=== PATIENT | male | born 1985 | race Caucasian/White ===

== ENCOUNTER 2022-03-25 09:57 | Emergency (ER) | payer BC, SELFPAY ==
--- NOTE | 2022-03-25 10:00 | ECG_ITS ---
Measurements Intervals [place] Rate: 94 P: 68 OR: 143 QRS: -19 QRSD: 97 T: 52 QT: 361 QTc: 451 Interpretive Statements SINUS RHYTHM POSSIBLE LEFT ATRIAL ENLARGEMENT POOR R WAVE PROGRESSION, ANTERIOR LEADS BORDERLINE ECG Electronically Signed On 03-25-2022 10:11:51 CDT by Chai Daley D.O.
[2022-03-25 10:01] VITALS: BP 138/100; PULSE 88; RESP 18; TEMP 36.8; O2SAT 97
--- NOTE | 2022-03-25 10:18 | ED.ARRPALP ---
HPI - Arrhythmia/Palpitations General Chief Complaint: Arrhythmia/Palpitations Stated Complaint: heart palpitations - near syncope Time Seen by Provider: 03/25/22 10:16 Source: patient Limitations: no limitations History of Present Illness HPI narrative: 36 years old white male was in a meeting at [employer] which is the busiest day of the season, while sitting in the meeting started feeling hot flashes going from his lower extremity all the way up to his head, and waves, feeling like he is going to blackout, the above symptoms was intermittent last few seconds each time then resolve spontaneously. On arrival to the emergency room patient's symptoms are resolved, he denies any fever, chills, nausea, vomiting, chest pain or shortness of breath. Patient is healthy otherwise, does not take medicine at home, he smokes and drinks, denies drug use. Related Data Home Medications Medication Instructions Recorded Confirmed No Home Medications 03/25/22 03/25/22 Allergies Allergy/AdvReac Type Severity Reaction Status Date / Time No Known Allergies Allergy Verified 03/25/22 11:57 Review of Systems Review of Systems: All systems reviewed & are unremarkable except as noted in HPI and below Exam Narrative: General appearance: Well-developed, well-nourished, anxious, restless Skin: Normal color Head: Normocephalic, nontraumatic Eyes: Clear conjunctiva ENT: Oropharynx normal, ears normal, nose normal Neck: Supple, nontender Chest and respiratory: Airway patent, no respiratory distress, no accessory muscle use Heart: Regular rate/rhythm Abdomen: Soft, nontender, no organomegaly, quiet bowel sounds Vascular: Normal peripheral pulses, normal capillary refill. Musculoskeletal: Normal range of motion, nontender back Neurologic: Alert and oriented ?3, [employer] is normal as tested, no gross motor deficit Course Reevaluation(s) Reevaluation #1: Patient feeling much better, declined to take the Ativan, and would like to go home. Also declined to take any day of work and would like to go to work immediately. Vital Signs Vital signs: Vital Signs Temperature 36.8 C 03/25/22 10:01 Pulse Rate 88 03/25/22 10:01 Respiratory Rate 18 03/25/22 10:01 Blood Pressure 138/100 H 03/25/22 10:01 Pulse Oximetry 97 03/25/22 10:01 Oxygen Delivery Room Air 03/25/22 10:01 Temperature 36.8 C 03/25/22 10:01 Pulse Rate 110 H 03/25/22 11:52 Respiratory Rate 18 03/25/22 11:52 Blood Pressure 139/99 H 03/25/22 11:52 Pulse Oximetry 97 03/25/22 10:01 Oxygen Delivery Room Air 03/25/22 11:52 MDM - Arrhythmia/Palpitations Differential Diagnosis Differential diagnosis: Likely palpitations and anxiety Lab Data Result diagrams: 03/25/22 10:39 03/25/22 10:39 Labs: Lab Results 03/25/22 03/25/22 03/25/22 Range/Units 10:39 10:39 10:39 WBC 12.7 H (4.5-10.0) K/mm3 RBC 4.85 (4.6-6.20) M/mm3 Hgb 16.3 (14.0-18.0) g/dL Hct 48.1 (42.0-52.0) % MCV 99.2 (80-100) fl MCH 33.6 (26-34) pg MCHC 33.9 (32-36) g/dl RDW 12.8 (11.5-14.5) % Plt Count 269 (150-375) k/mm3 MPV 9.6 (7.4-10.4) fl Immature Gran % (Auto) Not Reportable Neut % (Auto) Not Reportable Lymph % (Auto) Not Reportable [place] % (Auto) Not Reportable Eos % (Auto) Not Reportable Baso % (Auto) Not Reportable Lymph # (Auto) Not Reportable [place] # (Auto) Not Reportable Eos # (Auto) Not Reportable Baso # (Auto) Not Reportable Abs Immat Gran (auto) Not Reportable Absolute Neuts (auto) Not Reportable Absolute Nucleated RBC Not Reportable Nucleate
[2022-03-25 10:50] LABS: Hematocrit 48.1 % (42.0-52.0); Hemoglobin 16.3 g/dL (14.0-18.0); Mean Corpuscular HGB Conc 33.9 g/dl (32-36); Mean Corpuscular Hemoglobin 33.6 pg (26-34); Mean Corpuscular Volume 99.2 fl (80-100); Mean Platelet Volume 9.6 fl (7.4-10.4); Platelet Count Result 269 k/mm3 (150-375); Red Blood Count 4.85 M/mm3 (4.6-6.20); Red Cell Distribution Width 12.8 % (11.5-14.5); White Blood Count 12.7 K/mm3 (4.5-10.0)
[2022-03-25 10:59] LABS: Alanine Aminotransferase 48 U/L (6-50); Albumin Level 4.5 g/dL (3.5-5.1); Alkaline Phosphatase 61 U/L (38-126); Anion Gap 5 mmol/L (8-16); Aspartate Amino Transferase 33 U/L (17-59); Bilirubin,Total 0.5 mg/dL (0.2-1.3); Blood Urea Nitrogen 9 mg/dL (9-20); Calcium 8.8 mg/dL (8.4-10.2); Carbon Dioxide 24 mmol/L (22-30); Chloride 106 mmol/L (98-107); Estimated CRCL calculation 123 ml/min; Estimated Glomerular Filt Rate > 60; Glucose 112 mg/dL (65-110); Potassium 3.5 mmol/L (3.4-5.0); Sodium 135 mmol/L (137-145)
[2022-03-25 11:00] LABS: Ethanol < 10 mg/dL (<10)
[2022-03-25 11:10] LABS: Amphetamine Screen Urine Negative (Negative); Barbiturate Screen Urine Negative (Negative); Benzodiazepines Screen Urine Negative (Negative); Cannabinoid Screen Urine Negative (Negative); Cocaine Screen Urine Negative (Negative); Methadone Screen Urine Negative (Negative); Opiate Screen Urine Negative (Negative); Phencyclidine Screen Urine Negative (Negative)
[2022-03-25 11:19] LABS: Troponin I < 0.012 ng/mL (0.000-0.034)
[2022-03-25 11:52] VITALS: BP 139/99; PULSE 110; RESP 18
[2022-03-25 12:25] VITALS: BP 125/90; PULSE 78; RESP 16; O2SAT 99
[2022-03-25] MEDS: Please add drug allergy info to patient profile. 1 EACH XX (12:28)
== END 2022-03-25 12:25 | disposition home or self-care (01) ==
PROVIDERS: Emergency Provider Emergency Medicine
DX: F41.9 Anxiety disorder, unspecified (principal)
CPT/HCPCS: 36415; 80053; 80307; 84443; 84484; 85025; 93005; 99284